=== PATIENT | male | born 1960 | race Caucasian/White ===

== ENCOUNTER 2018-06-03 13:44 | Emergency (ER) | payer OTHER ==
[~2018-06-03] VITALS: Ht 167.6 cm; Wt 85.0 kg
[2018-06-03 13:51] VITALS: Ht 167.6 cm; Wt 85.0 kg
[2018-06-03 16:28] VITALS: BP 138/43
== END 2018-06-03 16:28 | disposition home or self-care (01) ==
LOC: ED 13:44
DX: R07.89 Other chest pain (principal); R10.9 Unspecified abdominal pain